=== PATIENT | male | born 2000 | race Caucasian/White ===

== ENCOUNTER 2018-01-02 21:43 | Emergency (ER) | payer OTHER ==
--- NOTE | 2018-01-02 21:49 | PDOC ---
Rapid Medical Evaluation Time Seen by Provider: 01/02/18 21:43 Medical Evaluation: 01/02/18 21:44 I have performed a brief in-person evaluation of this patient. The patient presents with a chief complaint of: sore throat and chest tightness Pertinent physical exam findings: Lungs CTAB. No stridor. 3+ tonsils. I have ordered the following: ekg, rapid strep, HIV The patient will proceed to the ED for further evaluation. Discharge Disposition - Diagnosis Pharyngitis - Referrals - Patient Instructions - Post Discharge Activity
[2018-01-02] MEDS ORDERED: DEXAMETHASONE LIQUID 0.5 MG/5 ML 240 ML BULK BOTTLE PO ONE (21:53)
[2018-01-02 21:57] VITALS: BP 131/85; PULSE 78; TEMP 98.4; BMI 30.4
[2018-01-02] MEDS ORDERED: IBUPROFEN 400 MG TABLET (FP) PO ONE ×2 (22:02→22:16)
--- NOTE | 2018-01-02 22:06 | PDOC ---
History of Present Illness - General Chief Complaint: Cold Symptoms Stated Complaint: COLD SYMPTOMS Time Seen by Provider: 01/02/18 21:43 History Source: Patient - History of Present Illness Timing/Duration: reports: other Associated Symptoms: reports: sore throat. denies: cough, earache, facial pain , fever/chills, headache Past History - Past Medical History Allergies/Adverse Reactions: Allergies Allergy/AdvReac Type Severity Reaction Status Date / Time No Known Allergies Allergy Verified 01/02/18 21:57 Home Medications: Ambulatory Orders NK [No Known Home Medication] 01/02/18 COPD: No - Suicide/Smoking/Psychosocial Hx Smoking History: Never smoked Have you smoked in the past 12 months: No Information on smoking cessation initiated: No Hx Alcohol Use: No Drug/Substance Use Hx: No Substance Use Type: None Review of Systems - Review of Systems Constitutional: No: Chills, Fever HEENTM: Yes: Throat Pain. No: Ear Pain Respiratory: No: Cough Neurological: No: Headache *Physical Exam - Vital Signs Last Vital Signs Temp Pulse Resp BP Pulse Ox 98.4 F 78 18 131/85 98 01/02/18 21:54 01/02/18 21:54 01/02/18 21:54 01/02/18 21:54 01/02/18 21:54 - Physical Exam General Appearance: Yes: Appropriately Dressed. No: Apparent Distress HEENT: positive: Normal Voice, TMs Normal, Other (minimal tonsillar enlargement b/l, no uvualr deviation). negative: Scleral Icterus (R), Scleral Icterus (L), Tonsillar Exudate, Tonsillar Erythema Neck: positive: Supple. negative: Lymphadenopathy (R), Lymphadenopathy (L) Respiratory/Chest: negative: Respiratory Distress Integumentary: positive: Dry, Warm Neurologic: positive: Fully Oriented, Alert, Normal Mood/Affect Medical Decision Making - Medical Decision Making 01/02/18 22:03 17 yo M, h/o asthma, p/w sore throat x 2 days. No ear pain, cough, f/c. Also requesting HIV test. Pt well viraj and stable w/ unremarkable exam. Motrin given. Will r/o strep. HIV sent 01/02/18 22:10 Of note, EKG was ordered on patient after CORDWAINER Adrien states patient complained of tightness at triage. Patient does have a history of asthma with clear chest, lungs at this time and denies any wheezing or shortness of breath. EKG reviewed by ED attending, and unremarkable per AUGUST Jurado 01/02/18 22:32 Pt signed out to AUGUST Jurado pending labs *DC/Admit/Observation/Transfer Diagnosis at time of Disposition: Pharyngitis Qualifiers: Pharyngitis/tonsillitis etiology: unspecified etiology Qualified Code(s): J02.9 - Acute pharyngitis, unspecified - Discharge Dispostion Disposition: HOME Condition at time of disposition: Good - Referrals - Patient Instructions Printed Discharge Instructions: DI for Viral Pharyngitis Additional Instructions: Rest, drink lots of fluids: Teas, water, soups, Pedialyte Saltwater gargles Steamy showers/seem to face break up mucus Avoid contact with others until fevers and cough resolved Lots of handwashing and good hygiene Continue [id number] medications for symptomatic relief Tylenol or Motrin for fever and pain Followup with private physician in one to 2 days as needed Return to emergency department for worsened symptoms, fevers, dehydration - Post Discharge Activity
--- NOTE | 2018-01-02 22:46 | PDOC ---
*Physical Exam - Vital Signs Last Vital Signs Temp Pulse Resp BP Pulse Ox 98.4 F 78 18 131/85 98 01/02/18 21:54 01/02/18 21:54 01/02/18 21:54 01/02/18 21:54 01/02/18 21:54 ED Treatment Course - Medications Given in the ED: ED Medications Discontinued Medications Generic Name Dose Route Start Last Admin Trade Name Simone PRN Reason Stop Dose Admin Dexamethasone 10 mg 01/02/18 21:53 01/02/18 22:07 Decadron Liquid - PO 01/02/18 21:54 Not Given ONCE ONE Ibuprofen 800 mg 01/02/18 22:02 01/02/18 22:17 Motrin - PO 01/02/18 22:03 800 mg ONCE ONE Administration Progress Note - Progress Note Progress Note: Sign out received from KRISTAL Lucas. Summary of ED course Pertinent studies/lab/EKG/consults- rapid strep, HIV Meds given- decadron, motrin Anticipated plan/disposition- discharge Medical Decision Making - Medical Decision Making 01/02/18 23:53 A/P: 17-year-old male without significant past medical history signed out to me by KRISTAL Lucas with exam consistent with pharyngitis pending strep testing and rapid HIV testing. Rapid strep testing is negative HIV testing is negative. I will discharge the patient home with symptomatic treatment for pharyngitis. *DC/Admit/Observation/Transfer Diagnosis at time of Disposition: Pharyngitis Qualifiers: Pharyngitis/tonsillitis etiology: unspecified etiology Qualified Code(s): J02.9 - Acute pharyngitis, unspecified - Discharge Dispostion Disposition: HOME Condition at time of disposition: Good Decision to Admit order: No - Referrals - Patient Instructions Printed Discharge Instructions: DI for Viral Pharyngitis Additional Instructions: Rest, drink lots of fluids: Teas, water, soups, Pedialyte Saltwater gargles Steamy showers/seem to face break up mucus Avoid contact with others until fevers and cough resolved Lots of handwashing and good hygiene Continue [id number] medications for symptomatic relief Tylenol or Motrin for fever and pain Followup with private physician in one to 2 days as needed Return to emergency department for worsened symptoms, fevers, dehydration - Post Discharge Activity
--- NOTE | 2018-01-06 00:39 | EKG ---
Test Reason : Blood Pressure : / mmHG Vent. Rate : 082 BPM Atrial Rate : 082 BPM P-R Int : 130 ms QRS Dur : 084 ms QT Int : 340 ms P-R-T Axes : 029 032 025 degrees QTc Int : 397 ms NORMAL SINUS RHYTHM NORMAL ECG NO PREVIOUS ECGS AVAILABLE Confirmed by ANDREW VALLE MD ([id number]) on 01/06/2018 12:39:37 AM Referred By: Confirmed By:ANDREW VALLE MD
== END 2018-01-03 00:08 | disposition home or self-care (01) ==
LOC: JERFT 21:43 → JER 21:43
DX: J02.9 Acute pharyngitis, unspecified (principal); Z11.4 Encounter for screening for human immunodeficiency virus [HIV]
CPT/HCPCS: 36415; 87070; 87389; 87430; 93005; 93010; 99282-25

== ENCOUNTER 2018-07-22 18:17 | Emergency (ER) | payer OTHER ==
[2018-07-22 18:44] VITALS: BP 142/81; PULSE 109; TEMP 100; BMI 29.0
[2018-07-22] MEDS ORDERED: ACETAMINOPHEN 500 MG TABLET (FP) PO ONE (19:19)
--- NOTE | 2018-07-22 19:20 | PDOC ---
History of Present Illness - General Chief Complaint: Pain Stated Complaint: GROIN PAIN Time Seen by Provider: 07/22/18 19:02 - History of Present Illness Initial Comments: 07/22/18 19:18 17-year-old male without comorbidities presents for cough and intermittent fever 4 days and right testicle pain 2 days testicle pain is atraumatic and onset. Past History - Past Medical History Allergies/Adverse Reactions: Allergies Allergy/AdvReac Type Severity Reaction Status Date / Time No Known Allergies Allergy Verified 07/22/18 18:39 Home Medications: Ambulatory Orders Doxycycline Hyclate 100 mg PO BID #20 capsule 07/22/18 Asthma: Yes COPD: No - Suicide/Smoking/Psychosocial Hx Smoking History: Never smoked Have you smoked in the past 12 months: No Hx Alcohol Use: No Drug/Substance Use Hx: No Substance Use Type: None Review of Systems - Review of Systems Constitutional: Yes: Fever HEENTM: Yes: Nose Congestion Respiratory: Yes: Cough : Yes: Testicular Pain *Physical Exam - Vital Signs Last Vital Signs Temp Pulse Resp BP Pulse Ox 100 F H 109 H 19 142/81 98 07/22/18 18:39 07/22/18 18:39 07/22/18 18:39 07/22/18 18:39 07/22/18 18:39 - Physical Exam Comments: 07/22/18 19:19 HEAD: NC/AT EYES: Conjuntiva clear Ears: Canals and TM's normal NOSE: No d/c THROAT: Moist mucous membrances, oral pharanx clear, uvula midline NECK: Supple without adenopathy CARDIAC: S1 S2 LUNGS: CTA Full and Equal breath sounds ABDOMEN: Soft NT ND MS: Full ROM in all joints without edema NEUROLOGIC: No gross sensory or motor deficits, NVID SKIN: Normal color and temperature no lesions or rashes : External genitalia is normal. There is no tenderness about the left testicle mild tenderness about the right testicle no tenderness about the vas deferens or epididymis Moderate Sedation - Procedure Monitoring Vital Signs: Procedure Monitoring Vital Signs Temperature 100 F H 07/22/18 18:39 Pulse Rate 109 H 07/22/18 18:39 Respiratory Rate 19 07/22/18 18:39 Blood Pressure 142/81 07/22/18 18:39 O2 Sat by Pulse Oximetry (%) 98 07/22/18 18:39 ED Treatment Course - RADIOLOGY Radiology Studies Ordered: Category Date Time Status SCROTUM AND CONTENTS US [US] Stat Ultrasound 07/22/18 19:18 Ordered *DC/Admit/Observation/Transfer Diagnosis at time of Disposition: Upper respiratory infection, Orchiditis - Discharge Dispostion Disposition: HOME Condition at time of disposition: Stable Decision to Admit order: No - Prescriptions Prescriptions: Doxycycline Hyclate 100 mg PO BID #20 capsule - Referrals Referrals: Dom Pabon MD [Staff Physician] - Zunilda Poon MD [Staff Physician] - - Patient Instructions Printed Discharge Instructions: DI for Viral Upper Respiratory Infection-Child Additional Instructions: Your being treated for orchitis. Please take the antibiotics as directed. Return to the emergency room should symptoms worsen. Follow-up with urology as well as her primary care physician one to 2 days. He may take Tylenol and Motrin as directed for pain. - Post Discharge Activity
[2018-07-22] MEDS ORDERED: ACETAMINOPHEN 500 MG TABLET (FP) ONE (19:25)
== END 2018-07-22 22:23 | disposition home or self-care (01) ==
LOC: JERFT 18:17
DX: J06.9 Acute upper respiratory infection, unspecified (principal); N45.2 Orchitis
CPT/HCPCS: 76870-TC; 87804; 99281-25

== ENCOUNTER 2018-09-14 21:46 | Emergency (ER) | payer OTHER ==
[2018-09-14 22:15] VITALS: BP 145/92; PULSE 89; TEMP 98; BMI 30.4
--- NOTE | 2018-09-14 22:42 | PDOC ---
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 Past History - Past Medical History Allergies/Adverse Reactions: Allergies Allergy/AdvReac Type Severity Reaction Status Date / Time No Known Allergies Allergy Verified 09/14/18 22:15 Home Medications: Ambulatory Orders Cyclobenzaprine HCl [Flexeril 10 mg] 10 mg PO HS PRN #10 tablet 09/14/18 Ibuprofen [Motrin -] 600 mg PO TID #30 tablet 09/14/18 Asthma: Yes COPD: No - Suicide/Smoking/Psychosocial Hx Smoking History: Never smoked Have you smoked in the past 12 months: No Information on smoking cessation initiated: No Hx Alcohol Use: No Drug/Substance Use Hx: No Substance Use Type: None Review of Systems - Review of Systems : No: Incontinence Musculoskeletal: Yes: Back Pain *Physical Exam - Vital Signs Last Vital Signs Temp Pulse Resp BP Pulse Ox 98.0 F 89 16 145/92 100 09/14/18 22:14 09/14/18 22:14 09/14/18 22:14 09/14/18 22:14 09/14/18 22:14 - Physical Exam Comments: 09/14/18 22:41 Lumbar spine skin color and temperature are normal range of motion is slightly limited. There is mild paralumbar musculature spasm and tenderness. No midline tenderness. 5 out of 5 strength in bilateral lower extremities without gross sensorimotor deficits. Negative straight leg raise test. He is neurovascularly intact. Thighs and calves are soft and nontender. Moderate Sedation - Procedure Monitoring Vital Signs: Procedure Monitoring Vital Signs Temperature 98.0 F 09/14/18 22:14 Pulse Rate 89 09/14/18 22:14 Respiratory Rate 16 09/14/18 22:14 Blood Pressure 145/92 09/14/18 22:14 O2 Sat by Pulse Oximetry (%) 100 09/14/18 22:14 *DC/Admit/Observation/Transfer Diagnosis at time of Disposition: Lumbar strain - Discharge Dispostion Disposition: HOME Condition at time of disposition: Stable Decision to Admit order: No - Prescriptions Prescriptions: Cyclobenzaprine HCl [Flexeril 10 mg] 10 mg PO HS PRN #10 tablet PRN Reason: Muscle Spasms Ibuprofen [Motrin -] 600 mg PO TID #30 tablet - Referrals Referrals: Apolinar Paz MD [Staff Physician] - - Patient Instructions Printed Discharge Instructions: DI for Back Strain or Sprain Additional Instructions: Please take the anti-inflammatory one tablet 3 times a day with food as needed for pain. Discontinue the medication if it bothers her stomach. The muscle relaxers one tablet at bedtime and will make you sleepy. Return to the emergency room should symptoms worsen or go unresolved. Follow-up with spine surgery in 2-3 days for further evaluation and treatment options. - Post Discharge Activity
== END 2018-09-14 22:44 | disposition home or self-care (01) ==
LOC: JER 21:46 → JERFT 21:46
DX: S39.012A Strain of muscle, fascia and tendon of lower back, initial encounter (principal); X50.0XXA Overexertion from strenuous movement or load, initial encounter; Y93.F2 Activity, caregiving, lifting; Y92.89 Other specified places as the place of occurrence of the external cause; Y99.0 Civilian activity done for income or pay
CPT/HCPCS: 99281-25

== ENCOUNTER 2019-03-18 02:30 | Emergency (ER) | payer OTHER ==
[2019-03-18 02:36] VITALS: BP 131/90; PULSE 105; TEMP 98.1; BMI 30.9
--- NOTE | 2019-03-18 03:22 | PDOC ---
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 States that he was stepping out of the truck and felt his left ankle fold. He is unsure whether his ankle inverted or everted but had trouble walking directly after due to pain. Denies any swelling, bony deformity, skin breakage, or bruising. Denies fevers, chills, nausea, vomiting, or diarrhea. 03/18/19 12:26 Past History - Past Medical History Allergies/Adverse Reactions: Allergies Allergy/AdvReac Type Severity Reaction Status Date / Time No Known Allergies Allergy Verified 03/18/19 02:36 Home Medications: Ambulatory Orders Cyclobenzaprine HCl [Flexeril 10 mg] 10 mg PO HS PRN #10 tablet 09/14/18 Ibuprofen [Motrin -] 600 mg PO TID #30 tablet 09/14/18 Asthma: Yes COPD: No - Suicide/Smoking/Psychosocial Hx Smoking History: Current some day smoker Have you smoked in the past 12 months: No Number of Cigarettes Smoked Daily: 10 Information on smoking cessation initiated: No Hx Alcohol Use: No Drug/Substance Use Hx: No Substance Use Type: None Review of Systems - Review of Systems Constitutional: No: Chills, Diaphoresis, Fever HEENTM: No: Eye Pain, Blurred Vision, Tearing Respiratory: No: Cough, Orthopnea, Shortness of Breath Cardiac (ROS): No: Chest Pain, Edema, Irregular Heart Rate ABD/GI: No: Diarrhea, Nausea, Vomiting : No: Burning, Dysuria, Discharge Musculoskeletal: Yes: Joint Pain. No: Back Pain, Joint Swelling Integumentary: No: Bruising, Erythema, Flushing, Lesions, Lumps Neurological: No: Headache, Numbness, Paresthesia Psychiatric: No: Anxiety, Depression *Physical Exam - Vital Signs Last Vital Signs Temp Pulse Resp BP Pulse Ox 98.1 F 105 H 17 131/90 98 03/18/19 02:33 03/18/19 02:33 03/18/19 02:33 03/18/19 02:33 03/18/19 02:33 - Physical Exam General Appearance: Yes: Nourished, Appropriately Dressed. No: Apparent Distress HEENT: positive: EOMI, ELEUTERIO, Normal ENT Inspection, Normal Voice Neck: positive: Trachea midline, Normal Thyroid, Supple. negative: Tender, Rigid Respiratory/Chest: positive: Lungs Clear, Normal Breath Sounds. negative: Chest Tender, Respiratory Distress, Accessory Muscle Use Cardiovascular: positive: Regular Rhythm, Regular Rate Gastrointestinal/Abdominal: positive: Normal Bowel Sounds, Flat, Soft. negative : Tender Lymphatic: negative: Adenopathy, Tenderness Musculoskeletal: positive: Decreased Range of Motion (slightly tender to palpation dorsum of left mid foot with decreased active rom but nearly full passive ROM. Repeat exam yielded nearly full active ROM with exception of exteme hyper plantar flexion. ). negative: Normal Inspection Extremity: positive: Normal Capillary Refill, Tender. negative: Normal Inspection, Normal Range of Motion, Delayed Capillary Refill, Pedal Edema, Swelling, Erythema Integumentary: positive: Normal Color, Dry, Warm Neurologic: positive: Fully Oriented, Alert, Normal Mood/Affect, Normal Response , Motor Strength 5/5 Deep Tendon Reflexes: Ankle (L): 2+, Ankle (R): 2+ Medical Decision Making - Medical Decision Making 18 year old male with mild left ankle mechanism after mis-stepping off of his EMS truck. Ankle XR negative for fracture or other pathology. Patient able to actively move ankle after mild passive manipulation. able to bear weight with assistance of crutches. This is likely a ligamentous strain 2/2 inversion ankle injury. Will DC with return precautions and follow up instructions. 03/18/19 12:38 *DC/Admit/Observation/Transfer Diagnosis at time of Disposition: Left ankle sprain Qualifiers: Encounter type: initial encounter Involved ligament of ankle: unspecified ligament Qualified Code(s): S93.402A - Sprain of unspecified ligament of left ankle, initial encounter - Discharge Dispostion Disposition: HOME Condition at time of disposition: Fair Decision to Admit order: No - Referrals Referrals: [facility] [Provider Group] - Patient Instructions Printed Discharge Instructions: DI for Ankle Sprain, How To Perform RICE (Rest , Ice, Compress, Elevate) Additional Instructions: Your ankle xray did not show any fracture. Please use RICE therapy as we instructed. Follow up with your PCP as needed. Please return to the ED if you have any new problems. - Post Discharge Activity Forms/Work/School Notes: Back to Work
--- NOTE | 2019-03-18 03:41 | PDOC ---
Attending Attestation - Resident Resident Name: Zorna Castillo - ED Attending Attestation I have performed the following: I have examined & evaluated the patient, The case was reviewed & discussed with the resident, I agree w/resident's findings & plan - HPI HPI: 03/18/19 05:17 18-year-old male with pain and swelling to the left ankle after stepping in a pothole. - Physicial Exam PE: 03/18/19 05:17 agree with resident exam - Medical Decision Making 03/18/19 05:18 18 yo male with left ankle pain xray left foot and ankle negative for fracture plan for splint and d/c with ortho follow up
== END 2019-03-18 05:35 | disposition home or self-care (01) ==
LOC: JER 02:30
DX: S93.402A Sprain of unspecified ligament of left ankle, initial encounter (principal); V86.41XA Person injured while boarding or alighting from ambulance or fire engine, initial encounter; Y92.488 Other paved roadways as the place of occurrence of the external cause; Y99.0 Civilian activity done for income or pay; Y93.89 Activity, other specified
CPT/HCPCS: 73610-TC-LT-FY; 73630-TC-LT; 99281-25